=== PATIENT | female | born 1970 | race Caucasian/White ===

== ENCOUNTER 2016-10-05 17:06 | Emergency (ER) | payer OTHER ==
[2016-10-05 17:29] VITALS: TEMP 97.7
[2016-10-05 18:23] LABS: RBC URINE < 1 /hpf (0-3); TRANSITIONAL EPITHIAL < 1 /hpf (0-3); URINE BACTERIA RARE (<OCC); URINE BILIRUBIN NEGATIVE (NEGATIVE); URINE BLOOD NEGATIVE (NEGATIVE); URINE COLOR Yellow (YELLOW); URINE GLUCOSE (UA) NORMAL (Normal); URINE KETONE NEGATIVE (NEGATIVE); URINE LEUKOCYTE ESTERASE TRACE Leu/uL (Negative); URINE PROTEIN NEGATIVE (NEGATIVE); URINE UROBILINOGEN NORMAL mg/dL (0.2-1.0); WBC URINE 5 /hpf (0-5)
--- NOTE | 2016-10-05 18:32 | C.PDOC ---
History Of Present Illness Pt states she slipped while walking in the rain and fell on her buttocks. She c/ o low back pain. Time Seen by Provider: 10/05/16 17:28 Chief Complaint (Nursing): Back Pain History Per: Patient Onset/Duration Of Symptoms: Sudden Onset (today) Current Symptoms Are (Timing): Still Present Quality Of Discomfort: "Pain" Severity: Moderate Previous Symptoms: Back Pain Associated Symptoms: None Exacerbating Factor(s): Movement Additional History Per: Prior Records Past Medical History Reviewed: Historical Data, Nursing Documentation, Vital Signs Vital Signs: Last Vital Signs Temp 97.7 F 10/05/16 17:20 Pulse 93 H 10/05/16 17:20 Resp 16 10/05/16 17:20 BP 126/80 10/05/16 17:20 Pulse Ox 97 10/05/16 18:37 - Medical History PMH: Asthma, Diabetes, HTN, Kidney Stones Surgical History: No Surg Hx Family History: States: Unknown Family Hx - Social History Hx Alcohol Use: No Hx Substance Use: No Review Of Systems Except As Marked, All Systems Reviewed And Found Negative. Constitutional: Negative for: Fever, Weakness Cardiovascular: Negative for: Chest Pain Respiratory: Negative for: Shortness of Breath Gastrointestinal: Negative for: Vomiting, Abdominal Pain Genitourinary: Negative for: Dysuria, Hematuria Musculoskeletal: Positive for: Back Pain (low). Negative for: Neck Pain Skin: Negative for: Rash Neurological: Negative for: Weakness, Numbness, Seizures, Altered Mental Status Physical Exam - Physical Exam Appears: Non-toxic, No Acute Distress Skin: Normal Color, Warm, Dry, No Rash Head: Atraumatic, Normacephalic Eye(s): bilateral: PERRL, EOMI Neck: Normal ROM, No Midline Cervical Tenderness, No Step Off Deformity, Supple Chest: Symmetrical, No Deformity Cardiovascular: Rhythm Regular Respiratory: Normal Breath Sounds, No Accessory Muscle Use Gastrointestinal/Abdominal: Soft, No Tenderness Back: No CVA Tenderness, Vertebral Tenderness (mild sacral), Paraspinal Tenderness (lower) Extremity: Normal ROM, No Deformity Neurological/Psych: Oriented x3, Normal Motor, Normal Sensation ED Course And Treatment O2 Sat by Pulse Oximetry: 97 Pulse Ox Interpretation: Normal - Other Rad LS spine x-rays X-Ray: Interpreted by Me, Viewed By Me Interpretation: No acute fx. Reassessment Condition: Improved Disposition Counseled Patient/Family Regarding: Studies Performed, Diagnosis, Need For Followup - Disposition Referrals: Genna Gallardo MD [Staff Provider] - Disposition: HOME/ ROUTINE Disposition Time: 18:36 Condition: IMPROVED Additional Instructions: Follow up with your doctor for further evaluation and treatment, including MRI of the back if symptoms persist. Return to the ER if you develop weakness, numbness, trouble urinating, worsening of symptoms or if you have any other concerns. Instructions: Back Pain (ED) Print Language: LUXEMBOURGER - Clinical Impression Clinical Impression: Contusion of back, Fall due to wet surface
[2016-10-05] MEDS ORDERED: Lidocaine 5% Patch TD STA (18:37)
[2016-10-05] MEDS ORDERED: Lidocaine 5% Patch TD ONE (18:39)
[2016-10-05 18:57] VITALS: BP 124/72; PULSE 72; RESP 18; O2SAT 98
--- NOTE | 2016-10-06 07:42 | RAD ---
PROCEDURE: Radiographs of the Lumbar Spine. HISTORY: Pain s/p fall COMPARISON: No prior. FINDINGS: BONES: Normal alignment. No listhesis. No fracture. DISC SPACES: Mild degenerative changes at the mid and lower lumbar spine OTHER FINDINGS: None. IMPRESSION: No evidence of acute fracture or subluxation. Mild degenerative changes.
== END 2016-10-05 18:57 | disposition home or self-care (01) ==
LOC: C.ER 17:06
DX: S30.0XXA Contusion of lower back and pelvis, initial encounter (principal); W01.0XXA Fall on same level from slipping, tripping and stumbling without subsequent striking against object, initial encounter; Y92.414 Local residential or business street as the place of occurrence of the external cause
CPT/HCPCS: 72100; 81001; 96372; 99283; J1885